=== PATIENT | male | born 2000 | race Hispanic/Latino ===

== ENCOUNTER 2021-03-21 02:49 | Emergency (ER) | payer SELFPAY ==
[2021-03-21] MEDS ORDERED: Bacitracin 1 PK ONE (03:12)
[2021-03-21] MEDS ORDERED: Lorazepam 2 MG/ML VIAL ONE (03:48)
[2021-03-21] MEDS ORDERED: Haloperidol Lactate 5 MG/ML VIAL ONE (03:54)
== END 2021-03-21 06:33 | disposition left against medical advice (07) ==
LOC: CSHERS 02:49
DX: F10.129 Alcohol abuse with intoxication, unspecified (principal)
CPT/HCPCS: 70450; 72125; 96372; J1630; J2060